=== PATIENT | female | born 1955 | race Caucasian/White ===

== ENCOUNTER 2017-11-18 21:26 | Emergency (ER) | payer OTHER ==
[~2017-11-18] VITALS: Ht 170.2 cm; Wt 97.0 kg
[2017-11-18] MEDS ORDERED: IBUP-1223 PO (21:44)
[2017-11-18] MEDS ORDERED: FENTANYL PF 100 MCG/2ML ONE (22:39)
[2017-11-18] MEDS ORDERED: FENTANYL PF 100 MCG/2ML IVPush ONE (23:00)
[2017-11-18 23:19] VITALS: BP 98/57
== END 2017-11-18 23:22 | disposition short-term general hospital (02) ==
LOC: ED 21:59
DX: R07.89 Other chest pain (principal)
CPT/HCPCS: 93005; 96374; 99285; J3010